=== PATIENT | female | born 1985 | race American Indian/Alaskan Native ===

== ENCOUNTER 2016-09-25 09:36 | Emergency (ER) | payer MEDICAID, OTHER ==
[2016-09-25 09:42] VITALS: BP 128/88
[2016-09-25] MEDS ORDERED: TETRACAINE 0.5% OU ONE (11:01)
[2016-09-25] MEDS ORDERED: FUL-GLO OP ONE (11:01)
--- NOTE | 2016-09-25 11:06 | Emergency Department Report ---
HPI - General Chief Complaint: Eye Problems Time Seen by Provider: 09/25/16 10:47 - HPI HPI: 31-year-old female presents today with left pink eye since yesterday. Positive for crusting around her eye this morning. Patient denies pain at rest but states it hurts when she touches it. Positive for draining, itching, foreign body sensation. Positive for photosensitivity. Denies visual change. The patient does wear contact lenses. He tried Visine with temporary relief. Denies injury or trauma. Denies fever, chills, nausea, vomiting, chest pain, shortness of breath, abdominal pain. ED Past Medical Hx - Past Medical History Previous Medical History?: No Hx Hypertension: No Hx Congestive Heart Failure: No Hx Diabetes: No Hx Deep Vein Thrombosis: No Hx Renal Disease: No Hx Sickle Cell Disease: No Hx Seizures: No Hx Asthma: No Hx COPD: No Hx HIV: No - Surgical History Past Surgical History?: No - Social History Smoking Status: Never Smoker Substance Use Type: None - Medications Home Medications: Home Medications Medication Instructions Recorded Confirmed Last Taken Type Levofloxacin [levofloxacin OPTH] 1 - 2 drop OP Q2HWA #1 bottle 09/25/16 Unknown Rx ED Review of Systems ROS: Stated complaint: POSS PINK EYE Other details as noted in HPI Constitutional: denies: chills, fever, malaise Eyes: eye pain, eye discharge. denies: vision change ENT: denies: ear pain, throat pain, congestion Respiratory: denies: cough, shortness of breath, wheezing Cardiovascular: denies: chest pain, palpitations Endocrine: no symptoms reported Gastrointestinal: denies: abdominal pain, nausea, vomiting Skin: denies: rash Neurological: denies: headache, weakness Physical Exam - Physical Exam Vital Signs: Vital Signs 09/25/16 09:40 Temperature 97.6 F Pulse Rate 74 Respiratory 18 Rate Blood Pressure 128/88 O2 Sat by Pulse 99 Oximetry Physical Exam: GENERAL: The patient is well-developed and well-nourished. Patient is in NAD. HEAD: Normocephalic. Atraumatic. EYES: Extraocular motions are intact, PERRL. Positive for left-sided conjunctival injection. No drainage or crusting noted at this time. EARS: External auditory canals and tympanic membranes clear. NOSE: Normal nasal mucosa with no nasal discharge. THROAT: No erythema, swelling or exudates. NECK: Supple, nontender, without lymphadenopathy. CHEST/LUNGS: Clear to auscultation throughout. HEART/CARDIOVASCULAR: Regular rate and rhythm. ABDOMEN: Abdomen is soft, nontender. No guarding or rebound tenderness. EXTREMITIES: Peripheral pulses intact. Capillary refill less than 2 seconds. NEURO: Alert and oriented x 3. Normal gait. ED Course Vital Signs 09/25/16 09:40 Temperature 97.6 F Pulse Rate 74 Respiratory 18 Rate Blood Pressure 128/88 O2 Sat by Pulse 99 Oximetry - Procedure Description Procedures done: Local anesthesia acquired with 2gtts of tetracaine ophthalmic solution. Fluorescence stain was then applied to the eye for further examination. The eye was visualized using a wood lamp and a point corneal abrasion was visualized, no foreign body or rust ring seen. Care instructions and follow up instructions were provided to the patient. ED Medical Decision Making - Lab Data Vital Signs 09/25/16 09:40 Temperature 97.6 F Pulse Rate 74 Respiratory 18 Rate Blood Pressure 128/88 O2 Sat by Pulse 99 Oximetry - Medical Decision Making 31-year-old female presents today with a pink eye 1 day. Wood lamp exam was performed and a corneal abrasion of her left eye was noted. She will be provided with a referral for ophthalmology. Patient is in no acute distress at this time. She will be discharged home and is encouraged to follow up with a primary care provider. She will be sent home on Levofloxacin ophthalmic drops and is encouraged to return to the emergency room for any worsening symptoms. Critical care attestation.: If time is entered above; I have spent that time in minutes in the direct care of this critically ill patient, excluding procedure time. ED Disposition Clinical Impression: Corneal abrasion Qualifiers: Encounter type: initial encounter Laterality: left Qualified Code(s): S05.02XA - Injury of conjunctiva and corneal abrasion without foreign body, left eye, initial encounter Disposition: DISCHARGED TO HOME OR SELFCARE Is pt being admited?: No Does the pt Need Aspirin: No Condition: Stable Instructions: Corneal Abrasion (ED) Additional Instructions: Follow-up with ophthalmology. Return to the emergency department if symptoms worsen. Prescriptions: Levofloxacin [levofloxacin OPTH] 1 - 2 drop OP Q2HWA #1 bottle Referrals: PRIMARY MD BROOKE [Primary Care Provider] - 3-5 Days ROSANNA JOHN MD [Staff Physician] - 3-5 Days Forms: Work/School Release Form(ED) Time of Disposition: 11:30
== END 2016-09-25 12:01 | disposition home or self-care (01) ==
LOC: ED 09:36
DX: S05.02XA Injury of conjunctiva and corneal abrasion without foreign body, left eye, initial encounter (principal); X58.XXXA Exposure to other specified factors, initial encounter; Y93.9 Activity, unspecified; Y92.89 Other specified places as the place of occurrence of the external cause; Y99.9 Unspecified external cause status
CPT/HCPCS: 99283